=== PATIENT | female | born 1970 | race Asian ===

== ENCOUNTER 2017-05-31 14:30 | Inpatient (IN) | payer MEDICAID, OTHER ==
[~2017-05-31] VITALS: Ht 172.7 cm; Wt 60.0 kg
[2017-05-31] MEDS ORDERED: SOD CHLORIDE 0.9% 1,000 ML IV STA ×2 (18:07→20:19)
[2017-05-31] MEDS ORDERED: ONDANSETRON 4 MG INJ IV STA (18:07)
[2017-05-31] MEDS ORDERED: morphine 4 MG/ML VIAL IV STA (18:07)
[2017-05-31 18:39] LABS: ABNORMAL IP MESSAGE 1; HEMATOCRIT 35.1 % (37.0-47.0); HEMOGLOBIN 12.3 g/dl (12.0-16.0); MEAN CORPUSCULAR VOLUME 85.6 fl (82.0-101.0); MEAN PLATELET VOLUME 9.6 fl (7.4-10.4); PLATELET COUNT 545 10^3/UL (140-415); RED CELL DISTRIBUTION WIDTH 12.1 % (11.5-14.5); WHITE BLOOD COUNT 36.2 10^3/ul (4.8-10.8)
[2017-05-31 18:50] LABS: POSITIVE DIFF @See below
[2017-05-31 18:51] LABS: PATH REVIEW? YES
[2017-05-31 18:57] LABS: ALBUMIN/GLOBULIN RATIO 0.86; BILIRUBIN,INDIRECT 0.7 mg/dl (0-1.1); BILIRUBIN,TOTAL 0.7 mg/dl (0.2-1.3); CALCIUM 8.9 mg/dl (8.4-10.2); CREATININE 0.84 mg/dl (0.44-1.00); POTASSIUM 3.5 mmol/L (3.5-5.1); TOTAL PROTEIN 8.6 g/dl (6.1-8.1)
[2017-05-31 19:36] LABS: LYMPHOCYTES # 1.4 10^3/ul (0.8-2.9); MONOCYTE # 3.3 10^3/ul (0.3-0.9); MONOCYTES % (M) 9 % (0-11)
[2017-05-31] MEDS ORDERED: CEFEPIME 2GM/50 ML (PMX) 50 ML IVPB STA (20:19)
[2017-05-31] MEDS ORDERED: VANCOMYCIN 1 GM (PMX) 250 ML IVPB ONE (20:30)
[2017-05-31 20:33] LABS: INR 1.21; PROTIME 15.4 Sec (12.2-14.2); PT RATIO 1.2
[2017-05-31 20:34] LABS: PARTIAL THROMBOPLASTIN TIME 46.4 Sec (25.0-35.0)
[2017-05-31 21:12] LABS: ADD UMIC YES; UR ASCORBIC ACID NEGATIVE (NEGATIVE); UR BACTERIA FEW /HPF (NONE SEEN); UR BILIRUBIN (Dip) NEGATIVE (NEGATIVE); UR BLOOD (Dip) 2+ mg/dL (NEGATIVE); UR CLARITY CLEAR (CLEAR); UR COLOR STRAW (YELLOW); UR GLUCOSE (Dip) NEGATIVE (NEGATIVE); UR KETONES (Dip) 1+ mg/dL (NEGATIVE); UR LEUKOCYTE ESTERASE (Dip) NEGATIVE Leu/ul (NEGATIVE); UR NITRITE (Dip) NEGATIVE (NEGATIVE); UR RBC 0 /HPF (0-5); UR SPECIFIC GRAVITY (Dip) 1.004 (1.003-1.030); UR TOTAL PROTEIN (Dip) NEGATIVE (NEGATIVE); UR UROBILINOGEN (Dip) NEGATIVE (NEGATIVE)
[2017-05-31] MEDS ORDERED: SOD CHLORIDE 0.9% 100 ML ONE (21:20)
[2017-05-31] MEDS ORDERED: IOHEXOL 300MG/ML 150 ML BTL ONE (21:20)
--- NOTE | 2017-05-31 22:01 | RADRPT ---
PROCEDURE: XR Chest. CLINICAL INDICATION: Possible sepsis. Shortness of breath. TECHNIQUE: Single frontal chest x-ray. COMPARISON: None available. FINDINGS: The cardiomediastinal silhouette is unremarkable. Bilateral lung hyperinflation is noted. No pneumothorax, pleural effusion or consolidation is seen. No acute osseous abnormality is noted. IMPRESSION: 1. Bilateral lung hyperinflation, correlate for possible COPD. 2. Otherwise no acute cardiopulmonary abnormality. RPTAT: HH .Antoni Valerio MD, Date Time Electronically viewed and signed by .Antoni Valerio MD, on 05/31/2017 22:00 .N/
--- NOTE | 2017-05-31 22:09 | RADRPT ---
PROCEDURE: CT abdomen and pelvis with contrast. CLINICAL INDICATION: Abdominal pain and nausea. TECHNIQUE: CT scan of the abdomen and pelvis with contrast was performed. Coronal and sagittal im ages were also reformatted. 80 cc Omnipaque-300 intravenous contrast was administered without compl ication. One or more of the following dose reduction techniques were used: Automated exposure contro l, adjustment of the mA and/or kV according to patient size, use of iterative reconstruction technViewpoint Digital ue. Total exam CTDIvol = 7.51 mGy and DLP = 375.15 mGy-cm. COMPARISON: None. FINDINGS: Visualized lower thorax: The lung bases are clear. There is no evidence for pleural effusion. Liver, gallbladder, pancreas and spleen: Normal hepatic contour, attenuation and top normal in size . There is no evidence for liver mass or ductal dilatation. The gallbladder is unremarkable. No c ommon bile duct dilatation is evident. The pancreas is normal. Mild splenomegaly of 13 cm is prese nt. Adrenal glands and genitourinary system: The adrenal glands are normal bilaterally. The kidneys ar e normal in size, contour and attenuation with no evidence for masses, calculi or hydronephrosis. Sy mmetric enhancement of the kidneys is present without evidence of pyelonephritis . The ureters are unremarkable. The urinary bladder shows no abnormality. Diffuse uterine enlargement is present the size of the uterus estimated at 17.4 x 11.4 x 11.3 cm, findings likely related to leiomyomatous chago nges. A left ovarian/adnexal cyst is suspected estimated 2.7 cm. Gastrointestinal system: The stomach is normal in caliber without evidence of wall thickening Ther e is no evidence of obstruction, ileus or inflammation. Appendicoliths are present within the appen willard of but there is normal appendiceal diameter of 5 mm and no inflammatory stranding to suggest ranulfo endicitis. A normal amount of fecal debris is present within the colon and there is no wall thickeni ng to suggest colitis. Peritoneum, retroperitoneum, vessels and lymph nodes: The abdominal aorta is normal in caliber. Th ere is no evidence for atherosclerotic calcification. Inferior vena cava is normal in caliber. The re is no evidence for adenopathy. The peritoneal cavity is normal with no evidence for ascites. Str anding of the fat within the pelvis concerning for edematous changes and unable to exclude pelvic co ngestion. There is no evidence of abscess Osseous structures and musculoskeletal system: There is no evidence for acute osseous abnormality o r muscular pathology. No subcutaneous abnormalities are present. RPTAT:HJJR IMPRESSION: 1. Diffuse uterine enlargement likely related to leiomyomatous changes with nonspecific edematous fi ndings of the fat in the pelvis raising concern for pelvic congestion syndrome. Pelvic inflammatory disease is a differential diagnostic possibility. Follow-up evaluation should be considered. 2. Simple appearing left ovarian/adnexal cyst without evidence of free fluid. 3. Appendicolith within the appendix without evidence of appendicitis. 4. Mild splenomegaly. Physician Lela Date Time Electronically viewed and signed by Physician Lela on 05/31/2017 22:09 JR/
--- NOTE | 2017-05-31 22:19 | ERA ---
ER Documentation Chief Complaint Date/Time DATE: 05/31/17 TIME: 18:07 Chief Complaint COUGH, VOMITING, DIARRHEA X1 MONTH HPI 47y/o female, h/o arthritis, anxiety, migraine headaches, fibromyalgia and uterine fibroid presents to the ED with multiple complaints. She reports a 6 month h/o vague, diffuse, non-rating lower abdominal pain which has become increasingly severe and unremitting for one month. Intermittent vaginal discharge but no bleeding, dysuria, hematuria or flank pain. Anorexia with unintentional 15lb weight loss. Nausea with 1-2 episodes of non-bilious, nonbloody emesis per week. Denies hematochezia or melanotic stool. Rare loose stools but no diarrhea. Occasional non-productive cough but no chest pain, palpitations or shortness of breath. No fevers or chills. Patient is an inconsistent and poor historian. ROS All systems reviewed and are negative except as per history of present illness. Medications Home Meds No Active Prescriptions or Reported Meds Allergies Allergies: Coded Allergies: No Known Allergy (Unverified , 05/31/17) PMhx/Soc Reviewed in chart. As per HPI. History of Surgery: No Hx Neurological Disorder: No Hx Respiratory Disorders: No Hx Cardiac Disorders: No Hx Psychiatric Problems: Yes (anxiety) Hx Miscellaneous Medical Probl: Yes (Fibromyalgia, arthritis, migraine, uterine fibroid) Hx Alcohol Use: No Hx Substance Use: Yes Hx Tobacco Use: No Smoking Status: Never smoker FmHx Family History: No coronary disease, No diabetes, No other Physical Exam Vitals Vital Signs Date Time Temp Pulse Resp B/P Pulse Ox O2 Delivery O2 Flow Rate FiO2 05/31/17 22:22 97.7 96 16 115/72 99 Room Air 05/31/17 18:40 106 20 110/78 Room Air 05/31/17 14:46 100.2 132 24 112/68 99 Physical Exam Const: Alert, anxious Head: Atraumatic Eyes: Normal Conjunctiva ENT: Normal External Ears, Nose and Mouth. Neck: Full range of motion. Nontender. No lymphadenopathy. No meningismus. Resp: Clear to auscultation bilaterally Cardio: Regular rate and rhythm, no murmurs Abd: Soft, mild, diffuse lower abdominal tenderness, No rebound or guarding. Normal bowel sounds. Pelvic Exam deferred to [facility] [facility]. Skin: No petechiae or rashes Back: No midline or flank tenderness Ext: No cyanosis, or edema Neur: Awake and alert Psych: Anxious. Result Diagram: 06/01/17 0455 06/01/17 0455 Results 24 hrs Laboratory Tests Test 05/31/17 18:20 05/31/17 20:33 05/31/17 20:56 05/31/17 22:20 White Blood Count 36.210^3/ul Red Blood Count 4.1010^6/ul Hemoglobin 12.3g/dl Hematocrit 35.1% Mean Corpuscular Volume 85.6fl Mean Corpuscular Hemoglobin 30.0pg Mean Corpuscular Hemoglobin Concent 35.0g/dl Red Cell Distribution Width 12.1% Platelet Count 85461^3/UL Mean Platelet Volume 9.6fl Neutrophils % % Segmented Neutrophils % (Manual) 87% Lymphocytes % % Lymphocytes % (Manual) 4% Monocytes % % Monocytes % (Manual) 9% Eosinophils % % Basophils % % Nucleated Red Blood Cells % 0.0/100WBC Neutrophils # 10^3/ul Absolute Lymphocytes (Manual) 1.410^3/ul Lymphocytes # 1.410^3/ul Monocytes # 3.310^3/ul Absolute Monocytes (Manual) 3.210^3/ul Eosinophils # 10^3/ul Basophils # 10^3/ul Nucleated Red Blood Cells # 10^3/ul Pathologist Review (Hematology) YES Prothrombin Time 15.4Sec Prothrombin Time Ratio 1.2 INR International Normalized Ratio 1.21 Activated Partial Thromboplast Time 46.4Sec Sodium Level 132mmol/L Potassium Level 3.5mmol/L Chloride Level 96mmol/L Carbon Dioxide Level 22mmol/L Anion Gap 18 Blood Urea Nitrogen 16mg/dl Creatinine 0.84mg/dl Glucose Level 131mg/dl Calcium Level 8.9mg/dl Total Bilirubin 0.7mg/dl Direct Bilirubin 0.00mg/dl Indirect Bilirubin 0.7mg/dl Aspartate Amino Transf (AST/SGOT) 26IU/L Alanine Aminotransferase (ALT/SGPT) 39IU/L Alkaline Phosphatase 131IU/L Total Protein 8.6g/dl Albumin 4.0g/dl Globulin 4.60g/dl Albumin/Globulin Ratio 0.86 Lipase 133U/L Beta HCG, Quantitative < 2.4mIU/ml Urine Color STRAW Urine Clarity CLEAR Urine pH 6.0 Urine Specific [place] 1.004 Urine Ketones 1+mg/dL Urine Nitrite NEGATIVEmg/dL Urine Bilirubin NEGATIVEmg/dL Urine Urobilinogen NEGATIVEmg/dL Urine Leukocyte Esterase NEGATIVELeu/ul Urine Microscopic RBC 0/HPF Urine Microscopic WBC 1/HPF Urine Bacteria FEW/HPF Urine Hemoglobin 2+mg/dL Urine Glucose NEGATIVEmg/dL Urine Total Protein NEGATIVEmg/dl Chlamydia trachomatis RNA (TMA) NOT DETECTED Chlamydia/GC Comment SEE NOTE Neisseria gonorrhoeae RNA (TMA) NOT DETECTED Lactic Acid Level 0.8mmol/L 0.7mmol/L Current Medications Medications (Trade) Dose Ordered Sig/Arline Route PRN Reason Start Time Stop Time Status Last Admin Dose Admin Sodium Chloride (NS) 1,000 ml @ 1,000 mls/hr Q1H STAT IV 05/31/17 18:07 05/31/17 19:06 DC 05/31/17 19:06 Morphine Sulfate (morphine) 4 mg ONCE STAT IV 05/31/17 18:07 05/31/17 18:16 DC 05/31/17 19:06 Ondansetron HCl 4 mg 4 mg ONCE STAT IV 05/31/17 18:07 05/31/17 18:16 DC 05/31/17 19:05 Cefepime HCl 50 ml @ 100 mls/hr ONCE STAT IVPB 05/31/17 20:19 05/31/17 20:48 DC 05/31/17 21:00 Vancomycin HCl 250 ml @ 125 mls/hr ONCE ONCE IVPB 05/31/17 20:30 05/31/17 22:29 DC 05/31/17 21:29 Sodium Chloride (NS) 1,000 ml @ 1,000 mls/hr Q1H STAT IV 05/31/17 20:19 05/31/17 21:18 DC 05/31/17 21:00 IV Flush 10 ml 10 ml STK-MED ONCE .ROUTE 05/31/17 21:20 05/31/17 21:21 DC 05/31/17 21:25 Sodium Chloride (NS) 100 ml @ ud STK-MED ONCE .ROUTE 05/31/17 21:20 05/31/17 21:21 DC 05/31/17 21:25 Iohexol (Omnipaque 300mg/ ml) 150 ml STK-MED ONCE .ROUTE 05/31/17 21:20 05/31/17 21:21 DC 05/31/17 21:26 PROCEDURE: CT abdomen and pelvis with contrast. CLINICAL INDICATION: Abdominal pain and nausea. TECHNIQUE: CT scan of the abdomen and pelvis with contrast was performed. Coronal and sagittal images were also reformatted. 80 cc Omnipaque-300 intravenous contrast was administered without complication. One or more of the following dose reduction techniques were used: Automated exposure control, adjustment of the mA and/or kV according to patient size, use of iterative reconstruction technique. Total exam CTDIvol = 7.51 mGy and DLP = 375.15 mGy-cm. COMPARISON: None. FINDINGS: Visualized lower thorax: The lung bases are clear. There is no evidence for pleural effusion. Liver, gallbladder, pancreas and spleen: Normal hepatic contour, attenuation and top normal in size. There is no evidence for liver mass or ductal dilatation. The gallbladder is unremarkable. No common bile duct dilatation is evident. The pancreas is normal. Mild splenomegaly of 13 cm is present. Adrenal glands and genitourinary system: The adrenal glands are normal bilaterally. The kidneys are normal in size, contour and attenuation with no evidence for masses, calculi or hydronephrosis. Symmetric enhancement of the kidneys is present without evidence of pyelonephritis . The ureters are unremarkable. The urinary bladder shows no abnormality. Diffuse uterine enlargement is present the size of the uterus estimated at 17.4 x 11.4 x 11.3 cm , findings likely related to leiomyomatous changes. A left ovarian/adnexal cyst is suspected estimated 2.7 cm. Gastrointestinal system: The stomach is normal in caliber without evidence of wall thickening There is no evidence of obstruction, ileus or inflammation. Appendicoliths are present within the appendix of but there is normal appendiceal diameter of 5 mm and no inflammatory stranding to suggest appendicitis. A normal amount of fecal debris is present within the colon and there is no wall thickening to suggest colitis. Peritoneum, retroperitoneum, vessels and lymph nodes: The abdominal aorta is normal in caliber. There is no evidence for atherosclerotic calcification. Inferior vena cava is normal in caliber. There is no evidence for adenopathy. The peritoneal cavity is normal with no evidence for ascites. Stranding of the fat within the pelvis concerning for edematous changes and unable to exclude pelvic congestion. There is no evidence of abscess Osseous structures and musculoskeletal system: There is no evidence for acute osseous abnormality or muscular pathology. No subcutaneous abnormalities are present. RPTAT:HJJR IMPRESSION: 1. Diffuse uterine enlargement likely related to leiomyomatous changes with nonspecific edematous findings of the fat in the pelvis raising concern for pelvic congestion syndrome. Pelvic inflammatory disease is a differential diagnostic possibility. Follow-up evaluation should be considered. 2. Simple appearing left ovarian/adnexal cyst without evidence of free fluid. 3. Appendicolith within the appendix without evidence of appendicitis. 4. Mild splenomegaly. Physician Lela Date Time Electronically viewed and signed by Physician Lela on 05/31/2017 22:09 JR/ Procedures/MDM DOCUMENTS REVIEWED: ED nurse, prior records MEDICAL DECISION MAKINy/o female, h/o arthritis, anxiety, migraine headaches, fibromyalgia and uterine fibroid presents to the ED with multiple complaints including abdominal pain, cough, nausea, vomiting and weight loss. Patient admits to similar symptoms for years. Was found to have a large uterine fibroid September 2015 but refused surgery. Multiple SIRS criteria. NS 30cc/kg bolus given and broad spectrum antibiotics after cultures. No obvious infectious source but may be intraabdominal. No pneumonia or UTI. Possible sepsis but no hypotension, normal Lactate, hence no severe sepsis or septic shock. CT findings as described reveal a large fibroid and possible pelvic congestion syndrome. No appendicitis, diverticulitis, mass, fluid collection or obstruction. Not . Doubt ovarian torsion or TOA. An occult malignancy is not ruled out. [facility] [facility], Dr Child consulted. Admit to med/surg for further evaluation and management. Counseled patient and family regarding diagnosis, diagnostic results and plan for admission. PATIENT CARE TRANSITIONED: Time: 22:35, Dr. Hansen. Departure Diagnosis: Primary Impression: Acute bilateral lower abdominal pain Additional Impressions: SIRS (systemic inflammatory response syndrome) Leukocytosis Qualified Code: D72.829 - Leukocytosis, unspecified type Anxiety Condition: Serious BAM DAVIDSON MD May 31, 2017 22:19
[2017-05-31 22:22] VITALS: TEMP 97.7
--- NOTE | 2017-05-31 23:52 | RADRPT ---
PROCEDURE: Pelvic ultrasound, limited. CLINICAL INDICATION: Pelvic pain. TECHNIQUE: Multiple sonographic images of the pelvis were obtained utilizing a transabdominal jared hnique. The images were reviewed on a PACS workstation. The patient refused endovaginal scanning. COMPARISON: None. FINDINGS: The uterus is heterogeneous and measures 18.7 x 10.7 x 11.1 cm. There is a heterogeneous fibroid lauren suring 10.4 x 8.1 x 10.4 cm. The endometrial echo complex is obscured by fibroid. There is trace pelvic free fluid. The right ovary is not visualized. The left ovary measures 4.5 x 2.0 x 3.0 cm. There is a hypoechoic cyst within the left ovary measuring 2.7 x 1.3 x 2.5 cm. No adn exal masses are identified. IMPRESSION: Large uterine fibroid. Left ovarian 2.7 cm cyst. Trace pelvic free fluid. Right ovary not visualized. .Antwon Isaac MD, Date Time Electronically viewed and signed by .Antwon Isaac MD, MD on 05/31/2017 23:51 .T/
[2017-06-01] MEDS ORDERED: ACETAMINOPHEN 325 MG TAB PO PRN ×2 (00:30→01:00)
[2017-06-01] MEDS ORDERED: ONDANSETRON 4 MG INJ IV PRN ×2 (00:30→01:00)
[2017-06-01 00:35] VITALS: PULSE 72
[2017-06-01] MEDS ORDERED: SOD CHLORIDE 0.9% 1,000 ML IV SCH (00:45)
[2017-06-01] MEDS ORDERED: VANCOMYCIN IV PER PHARMACY XX SCH ×2 (01:00→16:00)
[2017-06-01] MEDS ORDERED: morphine 2 MG INJ IV PRN (01:00)
[2017-06-01] MEDS ORDERED: NACL 0.9% 3 ML SYG IV SCH (01:00)
[2017-06-01 01:55] VITALS: Ht 172.7 cm; Wt 60.0 kg
[2017-06-01] MEDS: metroNIDAZOLE 500 MG/NS (PMX) 100 ML IVPB SCH ×4 (02:06→22:49)
[2017-06-01] MEDS: FAMOTIDINE 20 MG INJ IV SCH ×3 (02:06→22:08)
--- NOTE | 2017-06-01 02:43 | CONS ---
Date/Time of Note Date/Time of Note DATE: 06/01/17 TIME: 02:18 Assessment/Plan Assessment/Plan Additional Assessment/Plan 47yo [id number] for antibiotics and furthe workup 2/2 severely elevated WBC in the setting of N/V/D. Clinical picture c/w enlarged myomatous uterus w/o radiographic evidence of degeneration or infection. No evidence of PID or acute gynecologic pathology on exam. Possibly abdominal pain may be 2/2 size of uterus and fibroid and bulk sxs which generally will not resolve without either surgical management or medical management to decrease size -Discussed w/pt hormonal and surgical options for management of fibroids as an outpatient. Encouraged pt to reestablish care with Property Loss Insurance Claim Adjuster -Discussed with pt role of antiviral meds in the future at first onset of HSV outbreak -STI panel and vaginal culture pending -INJECTION MOLDING MACHINE TENDER will continue following patient Consultation Date/Type/Reason Admit Date/Time Jun 01, 2017 at 00:06 Date of Consultation: Jun 01, 2017 Type of Consultation: Gynecology Reason for Consultation Fibroids Referring Provider: BAM DAVIDSON MD Hx of Present Illness Pt is a 47yo P1 with known hx of fibroids who presented to the ED with c/o ongoing nausea, vomiting and chest cold for weeks. Also reports vaginal irritation from Herpes outbreak x10d and foul-smelling vaginal discharge x3wks. Pt states she was scheduled to undergo surgical management of her fibroids with Dr. Leonardo a few years ago, however decided she did not want surgery at that time. OB Hx: s/ full term x1, SAB x1, TAB x2 INJECTION MOLDING MACHINE TENDER Hx: LMP end of April. +heavy bleeding, +dysmenorrhea. Unknown date of last INJECTION MOLDING MACHINE TENDER exam and pap smear Medical Hx: denies Surgical Hx: finger surgery Family Hx: possible INJECTION MOLDING MACHINE TENDER malignancy in patient's mother- pt unsure Soc Hx: Presently partnered x25yrs although worried about partner being unfaithful. Partner also using Meth. Pt denies tob/EtOH/illicit drug use. Not currently working PROCEDURE: Pelvic ultrasound, limited. CLINICAL INDICATION: Pelvic pain. TECHNIQUE: Multiple sonographic images of the pelvis were obtained utilizing a transabdominal technique. The images were reviewed on a PACS workstation. The patient refused endovaginal scanning. COMPARISON: None. FINDINGS: The uterus is heterogeneous and measures 18.7 x 10.7 x 11.1 cm. There is a heterogeneous fibroid measuring 10.4 x 8.1 x 10.4 cm. The endometrial echo complex is obscured by fibroid. There is trace pelvic free fluid. The right ovary is not visualized. The left ovary measures 4.5 x 2.0 x 3.0 cm. There is a hypoechoic cyst within the left ovary measuring 2.7 x 1.3 x 2.5 cm. No adnexal masses are identified. IMPRESSION: Large uterine fibroid. Left ovarian 2.7 cm cyst. Trace pelvic free fluid. Right ovary not visualized. PROCEDURE: CT abdomen and pelvis with contrast. CLINICAL INDICATION: Abdominal pain and nausea. TECHNIQUE: CT scan of the abdomen and pelvis with contrast was performed. Coronal and sagittal images were also reformatted. 80 cc Omnipaque-300 intravenous contrast was administered without complication. One or more of the following dose reduction techniques were used: Automated exposure control, adjustment of the mA and/or kV according to patient size, use of iterative reconstruction technique. Total exam CTDIvol = 7.51 mGy and DLP = 375.15 mGy-cm. COMPARISON: None. FINDINGS: Visualized lower thorax: The lung bases are clear. There is no evidence for pleural effusion. Liver, gallbladder, pancreas and spleen: Normal hepatic contour, attenuation and top normal in size. There is no evidence for liver mass or ductal dilatation. The gallbladder is unremarkable. No common bile duct dilatation is evident. The pancreas is normal. Mild splenomegaly of 13 cm is present. Adrenal glands and genitourinary system: The adrenal glands are normal bilaterally. The kidneys are normal in size, contour and attenuation with no evidence for masses, calculi or hydronephrosis. Symmetric enhancement of the kidneys is present without evidence of pyelonephritis . The ureters are unremarkable. The urinary bladder shows no abnormality. Diffuse uterine enlargement is present the size of the uterus estimated at 17.4 x 11.4 x 11.3 cm , findings likely related to leiomyomatous changes. A left ovarian/adnexal cyst is suspected estimated 2.7 cm. Gastrointestinal system: The stomach is normal in caliber without evidence of wall thickening There is no evidence of obstruction, ileus or inflammation. Appendicoliths are present within the appendix of but there is normal appendiceal diameter of 5 mm and no inflammatory stranding to suggest appendicitis. A normal amount of fecal debris is present within the colon and there is no wall thickening to suggest colitis. Peritoneum, retroperitoneum, vessels and lymph nodes: The abdominal aorta is normal in caliber. There is no evidence for atherosclerotic calcification. Inferior vena cava is normal in caliber. There is no evidence for adenopathy. The peritoneal cavity is normal with no evidence for ascites. Stranding of the fat within the pelvis concerning for edematous changes and unable to exclude pelvic congestion. There is no evidence of abscess Osseous structures and musculoskeletal system: There is no evidence for acute osseous abnormality or muscular pathology. No subcutaneous abnormalities are present. RPTAT:HJJR IMPRESSION: 1. Diffuse uterine enlargement likely related to leiomyomatous changes with nonspecific edematous findings of the fat in the pelvis raising concern for pelvic congestion syndrome. Pelvic inflammatory disease is a differential diagnostic possibility. Follow-up evaluation should be considered. 2. Simple appearing left ovarian/adnexal cyst without evidence of free fluid. 3. Appendicolith within the appendix without evidence of appendicitis. 4. Mild splenomegaly. Past Medical History Medical History: no pertinent history Past Surgical History Past Surgical Hx: noncontributory Social History Alcohol Use: none Smoking Status: Never smoker Drug Use: none Exam/Review of Systems Vital Signs Vitals Vital Signs Date Time Temp Pulse Resp B/P Pulse Ox O2 Delivery O2 Flow Rate FiO2 06/01/17 00:35 72 16 118/64 99 Room Air 05/31/17 22:22 97.7 Exam Constitutional: alert, oriented, No distress Psych: other (circumstantial at points during interview) Head: normocephalic Eyes: EOMI Neck: supple Respiratory: clear to auscultation Cardiovascular: regular rate and rhythm Gastrointestinal: mass (firm mass palpable in lower abdomen, approximately 17- 18wk size, discrete), soft, tender (mild TTP LLQ), No rebound or guarding, No surgical scars Genitourinary - Female: nl adnexae, No CMT (cervix displaced to patient's left side likely 2/2 enlarged uterus, no active discharge noted (vaginal culture obtained)), No nl external genitalia (healing herpetic lesions noted on L side lateral to labia majora, no weeping noted) Results Result Diagram: 05/31/17181905/31/171819 Results 24 hrs Laboratory Tests Test 05/31/17 18:20 05/31/17 20:33 05/31/17 20:56 05/31/17 22:20 White Blood Count 36.2 H Red Blood Count 4.10 L Hemoglobin 12.3 Hematocrit 35.1 L Mean Corpuscular Volume 85.6 Mean Corpuscular Hemoglobin 30.0 Mean Corpuscular Hemoglobin Concent 35.0 Red Cell Distribution Width 12.1 Platelet Count 545 H Mean Platelet Volume 9.6 Neutrophils % Segmented Neutrophils % (Manual) 87 H Lymphocytes % Lymphocytes % (Manual) 4 L Monocytes % Monocytes % (Manual) 9 Eosinophils % Basophils % Nucleated Red Blood Cells % 0.0 Neutrophils # Absolute Lymphocytes (Manual) 1.4 Lymphocytes # 1.4 Monocytes # 3.3 H Absolute Monocytes (Manual) 3.2 H Eosinophils # Basophils # Nucleated Red Blood Cells # Pathologist Review (Hematology) YES Prothrombin Time 15.4 H Prothrombin Time Ratio 1.2 INR International Normalized Ratio 1.21 Activated Partial Thromboplast Time 46.4 H Sodium Level 132 L Potassium Level 3.5 Chloride Level 96 L Carbon Dioxide Level 22 Anion Gap 18 H Blood Urea Nitrogen 16 Creatinine 0.84 Glucose Level 131 Calcium Level 8.9 Total Bilirubin 0.7 Direct Bilirubin 0.00 Indirect Bilirubin 0.7 Aspartate Amino Transf (AST/SGOT) 26 Alanine Aminotransferase (ALT/SGPT) 39 Alkaline Phosphatase 131 H Total Protein 8.6 H Albumin 4.0 Globulin 4.60 H Albumin/Globulin Ratio 0.86 Lipase 133 Beta HCG, Quantitative < 2.4 Urine Color STRAW Urine Clarity CLEAR Urine pH 6.0 Urine Specific Wilson 1.004 Urine Ketones 1+ H Urine Nitrite NEGATIVE Urine Bilirubin NEGATIVE Urine Urobilinogen NEGATIVE Urine Leukocyte Esterase NEGATIVE Urine Microscopic RBC 0 Urine Microscopic WBC 1 Urine Bacteria FEW A Urine Hemoglobin 2+ H Urine Glucose NEGATIVE Urine Total Protein NEGATIVE Lactic Acid Level 0.8 0.7 Test 06/01/17 00:28 Lactic Acid Level 0.7 Medications Medications Current Medications Sodium Chloride (NS) 1,000 ml @ 80 mls/hr [id number] IV Last administered on 06/01t 01:39; Admin Dose 80 MLS/HR; Start 06/01/17 at 00:45 Ondansetron HCl (Zofran Inj) 4 mg Q6H PRN IV NAUSEA AND/OR VOMITING; Start at 01:00 Acetaminophen (Tylenol Tab) 650 mg Q6H PRN PO PAIN LEVEL 1-3 OR FEVER; Start at 01:00 Morphine Sulfate (morphine) 2 mg Q4H PRN IV SEVERE PAIN LEVEL 7-10; Start 06/01 at 01:00 Famotidine 20 mg 20 mg Q12 IV Last administered on 06/01/17 02:06; Admin Dose 20 MG; Start 06/01/17 at 01:00 Cefepime HCl 50 ml @ 100 mls/hr Q12 IVPB ; Start 06/01/17 at 09:00 Metronidazole 100 ml @ 100 mls/hr Q8 IVPB Last administered on 06/01/17 02:06 ; Admin Dose 100 MLS/HR; Start 06/01/17 at 01:01 Vancomycin HCl (Vancocin) 250 ml @ 125 mls/hr Q12H IVPB ; Start 06/01/17 at 10: 00 LYSSA DESHPANDE MD Jun 01, 2017 02:29
[2017-06-01 05:48] LABS: ABNORMAL IP MESSAGE 1; BASOPHILS % 0.2 % (0.0-2.0); HEMATOCRIT 26.4 % (37.0-47.0); HEMOGLOBIN 8.9 g/dl (12.0-16.0); LYMPHOCYTES # 0.9 10^3/ul (0.8-2.9); LYMPHOCYTES % 3.7 % (15.0-51.0); MEAN CORPUSCULAR HEMOGLOBIN 30.1 pg (29.0-33.0); MEAN CORPUSCULAR HGB CONC 33.7 g/dl (32.0-37.0); MEAN CORPUSCULAR VOLUME 89.2 fl (82.0-101.0); MONOCYTE # 1.2 10^3/ul (0.3-0.9); MONOCYTES % 5.2 % (0.0-11.0); NEUTROPHIL # 21.1 10^3/ul (1.6-7.5); NEUTROPHILS % 89.9 % (39.0-77.0); PLATELET COUNT 380 10^3/UL (140-415); RED BLOOD COUNT 2.96 10^6/ul (4.20-5.40); RED CELL DISTRIBUTION WIDTH 12.4 % (11.5-14.5); WHITE BLOOD COUNT 23.5 10^3/ul (4.8-10.8)
[2017-06-01 06:15] LABS: CHOL/HDL RATIO 4.3 RATIO
[2017-06-01 06:16] LABS: POSITIVE DIFF @See below
--- NOTE | 2017-06-01 06:28 | HP ---
Date/Time of Note Date/Time of Note DATE: 06/01/17 TIME: 06:06 Assessment/Plan VTE Prophylaxis VTE Prophylaxis Intervention: SCD's Lines/Catheters IV [facility] Peripheral IV Assessment/Plan Chief Complaint/Hosp Course This is a 47-year-old female [facility] for: #1 Sepsis: Patient presented with tachypnea and tachycardia and possible respiratory infection and/or abdominal/pelvic infection. Elevated white blood cell count of 36,000. At the current time treating with broad-spectrum antibiotics. Obtain urine and blood cultures and stool studies. IDEA WORKER on consult as well #2 Leukocytosis: Patient presents with white blood cell count of 36,000. At the current time no definitive source of infection is found however patient does have symptoms of possible respiratory infection versus an abdominal/pelvic infection. At the current time will await blood and urine cultures cultures and stool studies. Will also order HIV, RPR, PPD. Patient did report night sweats which does raise some concern for TB however chest x-ray does not show any signs of any cavitary lesion nonetheless we will still order PPD and QuantiFERON. IDEA WORKER is on consult as well and will await the recommendations as well. #3 uterine enlargement: CAT scan shows diffuse uterine enlargement likely related to leiomyomatous changes with nonspecific edematous findings of the fat in the pelvis raising concern for pelvic congestion syndrome. Pelvic inflammatory disease is a differential diagnostic possibility. Currently she has been started on broad-spectrum antibiotics. Will consult IDEA WORKER for further assistance and evaluation. #4Mild dehydration: Patient does report poor appetite and denies diarrhea and vomiting over the last week or so. She does have sodium level around 132. At the current time will provide IV fluid hydration and encourage p.o. intake. We will continue to follow electrolytes. #5 weight loss: Patient reports 15 pound weight loss approximately over the last week. Likely multifactorial secondary to poor p.o. intake as well as possible underlying infection infectious disease workup initiated at this time, will order any additional tests to workup for possible malignancy i as indicated. #6 DVT and GI prophylaxis: SCDs, acid tyler Further treatment strategy will be implemented as per the clinical course Problems: HPI/ROS Admit Date/Time Admit Date/Time Jun 01, 2017 at 00:06 Hx of Present Illness Chief complaint: Nausea vomiting and diarrhea 1 week This is a 47-year-old female who comes in today complaining of nausea vomiting and diarrhea 1 week. Of note patient is very anxious and her story timeline does appear to be off As she told the ED physician that she had symptoms for a month. Patient also states that she has a cough for the last few days as well. She also reports having fever when she arrived at the ED. Her temperature upon arrival was 100.2. Patient states that she lives with her boyfriend is a drug addict. She states that he has been sick for some time now as well and she thinks that she may have gotten something from him. She reports a 15 pound weight loss over the last week or so and she also reports night sweats. Patient reports that her boyfriend may also be engaging in sexual activity with other females as well. She denies any vaginal odor or vaginal itching or discharge. Allergies: NKDA Medications: See NOV OFELIA Const: As per HPI Eyes : No pain discharge or redness or change in visual acuity ENT: No pain, sore throat, congestion, congestion, dysphagia or discharge Respiratory: As per HPI Cardiovascular: No chest pain, palpitation, PND, or edema GI : As per HPI Genitourinary: No dysuria, hematuria, flank pain , discharge or CVA tenderness Musculoskeletal: No joint pain, back pain, neck pain, restricted range of motion in neck or joints Skin: No rash, bruising or hives Neuro: No headache, dizziness, syncope, seizure, focal weakness Endocrine: No polyuria, polydipsia, temperature intolerance Psych: No hallucination, depression, anxiety or suicidal ideation Psychological: other (circumstantial at points during interview) PMH/Family/Social Past Medical History Uterine fibroid, arthritis, migraines, fibromyalgia, TMJ Past Surgical History Hemorrhoidectomy Family History Significant Family History: no pertinent family hx Social History Alcohol Use: none Smoking Status: Never smoker Drug Use: marijuana, other (Sexually active with one partner however her partner appears to have multiple partners himself.) Exam/Review of Systems Vital Signs Vitals Vital Signs Date Time Temp Pulse Resp B/P Pulse Ox O2 Delivery O2 Flow Rate FiO2 06/01/17 00:35 72 16 118/64 99 Room Air 05/31/17 22:22 97.7 Intake and Output 9/19/17 9/19/17 9/20/17 15:00 23:00 07:00 Intake Total 300 ml Balance 300 ml Exam Exam General: This is a very anxious appearing female lying in bed in no acute distress HEENT: Atraumatic, normocephalic. The pupils are equal, round and reactive. Extraocular motor are intact Neck: Supple with full range of motion. No rigidity or meningismus Chest: Nontender Lungs: Clear to auscultation bilaterally no crackles rales or wheezing Heart: Normal S1-S2, Regular rhythm and rate. No murmur, S3, or S4 Abdomen: Soft, tenderness to palpation over the lower abdominal quadrant/pelvis , nondistended Extremities: Normal to inspection, no edema no cyanosis Neurologic: Normal mental status, speech normal, cranial nerves II through XII are intact, motor and sensory are intact, no focal weakness Additional Comments PROCEDURE: Pelvic ultrasound, limited. CLINICAL INDICATION: Pelvic pain. TECHNIQUE: Multiple sonographic images of the pelvis were obtained utilizing a transabdominal technique. The images were reviewed on a PACS workstation. The patient refused endovaginal scanning. COMPARISON: None. FINDINGS: The uterus is heterogeneous and measures 18.7 x 10.7 x 11.1 cm. There is a heterogeneous fibroid measuring 10.4 x 8.1 x 10.4 cm. The endometrial echo complex is obscured by fibroid. There is trace pelvic free fluid. The right ovary is not visualized. The left ovary measures 4.5 x 2.0 x 3.0 cm. There is a hypoechoic cyst within the left ovary measuring 2.7 x 1.3 x 2.5 cm. No adnexal masses are identified. IMPRESSION: Large uterine fibroid. Left ovarian 2.7 cm cyst. Trace pelvic free fluid. Right ovary not visualized. .Antwon Isaac MD, MD Date Time Electronically viewed and signed by .Antwon Isaac MD, MD on 05/31/2017 23:51 .T/ CC: BAM DAVIDSON MD ROCEDURE: XR Chest. CLINICAL INDICATION: Possible sepsis. Shortness of breath. TECHNIQUE: Single frontal chest x-ray. COMPARISON: None available. FINDINGS: The cardiomediastinal silhouette is unremarkable. Bilateral lung hyperinflation is noted. No pneumothorax, pleural effusion or consolidation is seen. No acute osseous abnormality is noted. IMPRESSION: 1. Bilateral lung hyperinflation, correlate for possible COPD. 2. Otherwise no acute cardiopulmonary abnormality. RPTAT: .Antoni Valerio MD, Date Time Electronically viewed and signed by .Antoni Valerio MD, MD on 05/31/2017 22: 00 .N/ CC: BAM DAVIDSON MD PROCEDURE: CT abdomen and pelvis with contrast. CLINICAL INDICATION: Abdominal pain and nausea. TECHNIQUE: CT scan of the abdomen and pelvis with contrast was performed. Coronal and sagittal images were also reformatted. 80 cc Omnipaque-300 intravenous contrast was administered without complication. One or more of the following dose reduction techniques were used: Automated exposure control, adjustment of the mA and/or kV according to patient size, use of iterative reconstruction technique. Total exam CTDIvol = 7.51 mGy and DLP = 375.15 mGy-cm. COMPARISON: None. FINDINGS: Visualized lower thorax: The lung bases are clear. There is no evidence for pleural effusion. Liver, gallbladder, pancreas and spleen: Normal hepatic contour, attenuation and top normal in size. There is no evidence for liver mass or ductal dilatation. The gallbladder is unremarkable. No common bile duct dilatation is evident. The pancreas is normal. Mild splenomegaly of 13 cm is present. Adrenal glands and genitourinary system: The adrenal glands are normal bilaterally. The kidneys are normal in size, contour and attenuation with no evidence for masses, calculi or hydronephrosis. Symmetric enhancement of the kidneys is present without evidence of pyelonephritis . The ureters are unremarkable. The urinary bladder shows no abnormality. Diffuse uterine enlargement is present the size of the uterus estimated at 17.4 x 11.4 x 11.3 cm , findings likely related to leiomyomatous changes. A left ovarian/adnexal cyst is suspected estimated 2.7 cm. Gastrointestinal system: The stomach is normal in caliber without evidence of wall thickening There is no evidence of obstruction, ileus or inflammation. Appendicoliths are present within the appendix of but there is normal appendiceal diameter of 5 mm and no inflammatory stranding to suggest appendicitis. A normal amount of fecal debris is present within the colon and there is no wall thickening to suggest colitis. Peritoneum, retroperitoneum, vessels and lymph nodes: The abdominal aorta is normal in caliber. There is no evidence for atherosclerotic calcification. Inferior vena cava is normal in caliber. There is no evidence for adenopathy. The peritoneal cavity is normal with no evidence for ascites. Stranding of the fat within the pelvis concerning for edematous changes and unable to exclude pelvic congestion. There is no evidence of abscess Osseous structures and musculoskeletal system: There is no evidence for acute osseous abnormality or muscular pathology. No subcutaneous abnormalities are present. RPTAT:HJJR IMPRESSION: 1. Diffuse uterine enlargement likely related to leiomyomatous changes with nonspecific edematous findings of the fat in the pelvis raising concern for pelvic congestion syndrome. Pelvic inflammatory disease is a differential diagnostic possibility. Follow-up evaluation should be considered. 2. Simple appearing left ovarian/adnexal cyst without evidence of free fluid. 3. Appendicolith within the appendix without evidence of appendicitis. 4. Mild splenomegaly. Physician Lela Date Time Electronically viewed and signed by Physician Lela on 05/31/2017 22:09 JR/ CC: BAM DAVIDSON MD Labs Result Diagram: 05/31/17 1820 05/31/17 1820 Medications Medications Current Medications Sodium Chloride (NS) 1,000 ml @ 80 mls/hr [id number] IV Last administered on 06/01t 01:39; Admin Dose 80 MLS/HR; Start 06/01/17 at 00:45 Ondansetron HCl (Zofran Inj) 4 mg Q6H PRN IV NAUSEA AND/OR VOMITING; Start at 01:00 Acetaminophen (Tylenol Tab) 650 mg Q6H PRN PO PAIN LEVEL 1-3 OR FEVER; Start at 01:00 Morphine Sulfate (morphine) 2 mg Q4H PRN IV SEVERE PAIN LEVEL 7-10; Start 06/01 at 01:00 Famotidine 20 mg 20 mg Q12 IV Last administered on 06/01/17 02:06; Admin Dose 20 MG; Start 06/01/17 at 01:00 Cefepime HCl 50 ml @ 100 mls/hr Q12 IVPB ; Start 06/01/17 at 09:00 Metronidazole 100 ml @ 100 mls/hr Q8 IVPB Last administered on 06/01/17 02:06 ; Admin Dose 100 MLS/HR; Start 06/01/17 at 01:01 Vancomycin HCl (Vancocin) 250 ml @ 125 mls/hr Q12H IVPB ; Start 06/01/17 at 10: 00 RACHEL OLIVEIRA Jun 01, 2017 06:16
[2017-06-01 06:38] LABS: ALBUMIN 2.7 g/dl (3.3-4.9); ALBUMIN/GLOBULIN RATIO 0.81; BILIRUBIN,INDIRECT 0.2 mg/dl (0-1.1); BILIRUBIN,TOTAL 0.2 mg/dl (0.2-1.3); CALCIUM 7.8 mg/dl (8.4-10.2); CREATININE 0.61 mg/dl (0.44-1.00); POTASSIUM 3.2 mmol/L (3.5-5.1)
[2017-06-01 08:14] VITALS: BP 112/73; RESP 14
--- NOTE | 2017-06-01 09:35 | PN ---
Date/Time of Note Date/Time of Note DATE: 06/01/17 TIME: 09:29 Assessment/Plan VTE Prophylaxis VTE Prophylaxis Intervention: SCD's Lines/Catheters IV [facility]ter Type (from [facility]): Peripheral IV Assessment/Plan Chief Complaint/Hosp Course This is a 47-year-old female [facility] for: #1 Sepsis: Patient presented with tachypnea and tachycardia and possible respiratory infection and/or abdominal/pelvic infection. SURFACE MOUNT TECHNOLOGY OPERATOR consulted secondary to the finding of CT of the abdomen and pelvis/ leiomyomatous Follow-up blood culture, urine culture, stool studies, HIV, RPR, PPD. Continue cefepime and Flagyl Leukocytosis is improving #2 uterine enlargement: CAT scan shows diffuse uterine enlargement likely related to leiomyomatous changes with nonspecific edematous findings of the fat in the pelvis raising concern for pelvic congestion syndrome. Pelvic inflammatory disease is a differential diagnostic possibility. Continue cefepime and Flagyl. SURFACE MOUNT TECHNOLOGY OPERATOR on-call has been consulted #3. Mild dehydration: Secondary to diarrhea and vomiting Resolved status post IV fluid #4. Hypokalemia: Repleted, continue to monitor #5 weight loss: Patient reports 15 pound weight loss approximately over the last week. Likely multifactorial secondary to poor p.o. intake as well as possible underlying infection infectious disease workup initiated at this time, will order any additional tests to workup for possible malignancy , CEA #6 DVT and GI prophylaxis: SCDs, acid tyler Further treatment strategy will be implemented as per the clinical course Problems: Subjective 24 Hr Interval Summary Free Text/Dictation continues to complain of having abdominal pain No nausea, vomiting or diarrhea since admission Afebrile Denies of any chest pain, shortness of breath or palpitation Exam/Review of Systems Vital Signs Vitals Vital Signs Date Time Temp Pulse Resp B/P Pulse Ox O2 Delivery O2 Flow Rate FiO2 06/01/17 08:14 97.7 88 14 112/73 99 06/01/17 00:35 Room Air Intake and Output 05/31/17 05/31/17 06/01/17 15:00 23:00 07:00 Intake Total 300 ml Balance 300 ml Exam General: The patient is well-developed, Not in acute distress. HEENT: Atraumatic, normocephalic. The pupils are equal and round . Neck: Supple with full range of motion. Chest: Normal expansion of the thorax during inspiration Lungs: Clear to auscultation bilaterally Heart: Normal S1-S2, Regular rhythm and rate. Abdomen: Soft , minimally tender epigastric region, nondistended , bowel sounds are present. Extremities: Normal to inspection, no edema no cyanosis Neurologic: Normal mental status,The patient is awake, alert and oriented . Results Result Diagram: 06/01/17 0455 06/01/17 0455 Results 24 hrs Laboratory Tests Test 05/31/17 18:20 05/31/17 20:33 05/31/17 20:56 05/31/17 22:20 White Blood Count 36.2 H Red Blood Count 4.10 L Hemoglobin 12.3 Hematocrit 35.1 L Mean Corpuscular Volume 85.6 Mean Corpuscular Hemoglobin 30.0 Mean Corpuscular Hemoglobin Concent 35.0 Red Cell Distribution Width 12.1 Platelet Count 545 H Mean Platelet Volume 9.6 Neutrophils % Segmented Neutrophils % (Manual) 87 H Lymphocytes % Lymphocytes % (Manual) 4 L Monocytes % Monocytes % (Manual) 9 Eosinophils % Basophils % Nucleated Red Blood Cells % 0.0 Neutrophils # Absolute Lymphocytes (Manual) 1.4 Lymphocytes # 1.4 Monocytes # 3.3 H Absolute Monocytes (Manual) 3.2 H Eosinophils # Basophils # Nucleated Red Blood Cells # Pathologist Review (Hematology) YES Prothrombin Time 15.4 H Prothrombin Time Ratio 1.2 INR International Normalized Ratio 1.21 Activated Partial Thromboplast Time 46.4 H Sodium Level 132 L Potassium Level 3.5 Chloride Level 96 L Carbon Dioxide Level 22 Anion Gap 18 H Blood Urea Nitrogen 16 Creatinine 0.84 Glucose Level 131 Calcium Level 8.9 Total Bilirubin 0.7 Direct Bilirubin 0.00 Indirect Bilirubin 0.7 Aspartate Amino Transf (AST/SGOT) 26 Alanine Aminotransferase (ALT/SGPT) 39 Alkaline Phosphatase 131 H Total Protein 8.6 H Albumin 4.0 Globulin 4.60 H Albumin/Globulin Ratio 0.86 Lipase 133 Beta HCG, Quantitative < 2.4 Urine Color STRAW Urine Clarity CLEAR Urine pH 6.0 Urine Specific Darden 1.004 Urine Ketones 1+ H Urine Nitrite NEGATIVE Urine Bilirubin NEGATIVE Urine Urobilinogen NEGATIVE Urine Leukocyte Esterase NEGATIVE Urine Microscopic RBC 0 Urine Microscopic WBC 1 Urine Bacteria FEW A Urine Hemoglobin 2+ H Urine Glucose NEGATIVE Urine Total Protein NEGATIVE Lactic Acid Level 0.8 0.7 Test 06/01/17 00:28 06/01/17 04:55 Lactic Acid Level 0.7 White Blood Count 23.5 #H Red Blood Count 2.96 #L Hemoglobin 8.9 #L Hematocrit 26.4 #L Mean Corpuscular Volume 89.2 Mean Corpuscular Hemoglobin 30.1 Mean Corpuscular Hemoglobin Concent 33.7 Red Cell Distribution Width 12.4 Platelet Count 380 # Mean Platelet Volume 10.0 Neutrophils % 89.9 H Lymphocytes % 3.7 L Monocytes % 5.2 Eosinophils % 0.0 Basophils % 0.2 Nucleated Red Blood Cells % 0.0 Neutrophils # 21.1 H Lymphocytes # 0.9 Monocytes # 1.2 H Eosinophils # 0.0 Basophils # 0.0 Nucleated Red Blood Cells # 0.0 Sodium Level 137 Potassium Level 3.2 L Chloride Level 105 Carbon Dioxide Level 23 Anion Gap 12 Blood Urea Nitrogen 12 Creatinine 0.61 Glucose Level 103 Hemoglobin A1c 5.3 Calcium Level 7.8 L Magnesium Level 2.1 Total Bilirubin 0.2 Direct Bilirubin 0.00 Indirect Bilirubin 0.2 Aspartate Amino Transf (AST/SGOT) 18 Alanine Aminotransferase (ALT/SGPT) 31 Alkaline Phosphatase 94 Total Protein 6.0 #L Albumin 2.7 #L Globulin 3.30 H Albumin/Globulin Ratio 0.81 Triglycerides Level 68 Cholesterol Level 70 L LDL Cholesterol, Calculated 40 HDL Cholesterol 16 L Cholesterol/HDL Ratio 4.3 Thyroid Stimulating Hormone (TSH) 1.250 Medications Medications Current Medications Sodium Chloride (NS) 1,000 ml @ 80 mls/hr [id number] IV Last administered on 06/01 01:39; Admin Dose 80 MLS/HR; Start 06/01/17 at 00:45 Ondansetron HCl (Zofran Inj) 4 mg Q6H PRN IV NAUSEA AND/OR VOMITING; Start at 01:00 Acetaminophen (Tylenol Tab) 650 mg Q6H PRN PO PAIN LEVEL 1-3 OR FEVER; Start at 01:00 Morphine Sulfate (morphine) 2 mg Q4H PRN IV SEVERE PAIN LEVEL 7-10; Start 06/01 at 01:00 Famotidine 20 mg 20 mg Q12 IV Last administered on 06/01/17 08:09; Admin Dose 20 MG; Start 06/01/17 at 01:00 Cefepime HCl 50 ml @ 100 mls/hr Q12 IVPB ; Start 06/01/17 at 09:00 Metronidazole 100 ml @ 100 mls/hr Q8 IVPB Last administered on 06/01/17t 08:09 ; Admin Dose 100 MLS/HR; Start 06/01/17 at 01:01 Vancomycin HCl (Vancocin) 250 ml @ 125 mls/hr Q12H IVPB ; Start 06/01/17 at 10: 00 RALF MOORE MD Jun 01, 2017 09:35
[2017-06-01] MEDS ORDERED: POTASSIUM CHLORIDE 20 MEQ in SOD CHLORIDE 0.9% 100 ML IVPB ONE ×2 (10:00→11:30)
[2017-06-01] MEDS ORDERED: VANCOMYCIN 1 GM in NS 250 ML IVPB SCH (10:00)
[2017-06-01] MEDS ORDERED: POTASSIUM CHLORIDE 50 ML IVPB SCH (11:00)
[2017-06-01] MEDS: D5W-0.45 NACL + KCL 20 MEQ 1,000 ML IV SCH (12:08)
[2017-06-01] MEDS: CEFEPIME 1GM/50 ML (PMX) 50 ML IVPB SCH ×2 (12:08→22:08)
[2017-06-01 14:10] VITALS: BP 119/79; RESP 16
[2017-06-01] MEDS ORDERED: POTASSIUM CHLORIDE (SR) 20 MEQ TAB PO STA (14:53)
[2017-06-01] MEDS ORDERED: VANCOMYCIN 1.25 GM in SOD CHLORIDE 0.9% 250 ML IVPB SCH (17:30)
[2017-06-01] MEDS: VANCOMYCIN 1 GM in NS 250 ML IVPB SCH (17:43)
[2017-06-01] MEDS ORDERED: BISMUTH SUBSALICYLATE 120 ML BTL PO PRN (21:30)
[2017-06-01] MEDS ORDERED: LORAZEPAM 2 MG INJ IV PRN (21:30)
[2017-06-01] MEDS ORDERED: PRAMOXINE/HC 10 GM RECT FOAM PR ONE (21:30)
[2017-06-01] MEDS ORDERED: LOPERAMIDE 2 MG CAP PO ONE (21:30)
[2017-06-01] MEDS ORDERED: ACYCLOVIR 400 MG TAB PO ONE (21:30)
[2017-06-01] MEDS ORDERED: PE/SHARK OIL/MO/PETROL 30 GM OINT PR ONE (21:30)
[2017-06-01] MEDS ORDERED: LORAZEPAM 0.5 MG TAB PO PRN (21:30)
[2017-06-02] MEDS: VANCOMYCIN 1 GM in NS 250 ML IVPB SCH (00:39)
[2017-06-02] MEDS: D5W-0.45 NACL + KCL 20 MEQ 1,000 ML IV SCH (00:40)
[2017-06-02] MEDS: metroNIDAZOLE 500 MG/NS (PMX) 100 ML IVPB SCH (06:00)
[2017-06-02] MEDS ORDERED: ASCORBIC ACID 500 MG TAB PO SCH (09:00)
[2017-06-02] MEDS ORDERED: FAMOTIDINE 20 MG TAB PO SCH (09:00)
--- NOTE | 2017-06-02 15:02 | DS ---
Date/Time of Note Date/Time of Note DATE: 06/02/17 TIME: 14:46 Discharge Summary Admission/Discharge Info Admit Date/Time Jun 01, 2017 at 00:06 Discharge Date/Time Jun 02, 2017 at 09:00 Discharge Diagnosis 1. Septicemia, Patient presented with tachypnea and tachycardia and possible respiratory infection and/or abdominal/pelvic infection. patient left AMA 2. uterine enlargement: CAT scan shows diffuse uterine enlargement likely related to leiomyomatous changes with nonspecific edematous findings of the fat in the pelvis raising concern for pelvic congestion syndrome. Pelvic inflammatory disease is a differential diagnostic possibility. follow up with MOLD RELEASE WORKER 3. Mild dehydration: secondary to diarrhea and vomiting, Resolved status post IV fluid 4. Hypokalemia: KCL given but no repeated K since patient left AMA 5. Reported weight loss: Patient reports 15 pound weight loss approximately over the last week, needs further work up, follow up- with PCP 6. Patient left hospital without noticing staff Patient Condition: Fair Hx of Present Illness This is a 47-year-old female who comes in today complaining of nausea vomiting and diarrhea 1 week. Of note patient is very anxious and her story timeline does appear to be off As she told the ED physician that she had symptoms for a month. Patient also states that she has a cough for the last few days as well. She also reports having fever when she arrived at the ED. Her temperature upon arrival was 100.2. Patient states that she lives with her boyfriend is a drug addict. She states that he has been sick for some time now as well and she thinks that she may have gotten something from him. She reports a 15 pound weight loss over the last week or so and she also reports night sweats. Patient reports that her boyfriend may also be engaging in sexual activity with other females as well. She denies any vaginal odor or vaginal itching or discharge. Allergies: NKDA Medications: See MAR Hospital Course Patient 's symptoms sound like acute gastroenteritis but other etiology needs to rule out. Hypokalemia, hyponatremia are all considered GI loss related. She got IVF, hyponatremia is resolved. She got KCL for hypokalemia on 06/01/2017, no repeat K since she left the hospital by herself. Patient reports 15 pound weight loss approximately over the last week. HIV test is negative. She needs further work up per primary physician. Patient has uterine enlargement: CAT scan shows diffuse uterine enlargement likely related to leiomyomatous changes with nonspecific edematous findings of the fat in the pelvis raising concern for pelvic congestion syndrome. She needs MOLD RELEASE WORKER consultation. Patient left the hospital without notifying any staff. She is not answering her phone. The nurse, social worker psychiatric and myself all called her at [phone] and left message. Home Meds No Active Prescriptions or Reported Meds Follow-up Plan PCP as soon as possible(left message on patient's phone) Primary Care Provider Care Physician No Primary LANDEN ROSADO MD Jun 02, 2017 15:01
== END 2017-06-02 09:00 | disposition left against medical advice (07) | DRG 872 ==
LOC: E/R 14:30 → MS1 06-01 00:06
PROVIDERS: ADMIT Family Medicine; ATTEND Family Medicine
DX: A41.9 Sepsis, unspecified organism (principal); E86.0 Dehydration; N85.2 Hypertrophy of uterus; E87.6 Hypokalemia; R63.4 Abnormal weight loss; Z68.20 Body mass index [BMI] 20.0-20.9, adult
CPT/HCPCS: 36415; 71010; 74177; 76856; 80053; 80061; 81001; 82378; 83036; 83605; 83690; 83735; 84443; 84702; 85025; 85610; 85730; 86480; 86592; 86703; 87040; 87081; 87086; 87591; 93005; 96374; 96375; 96376; J0692; J2270; J2405; J3370; J3480; J7030; J7050; Q9967